=== PATIENT | male | born 1955 | race Two or more races ===

== ENCOUNTER 2019-08-27 20:51 | Emergency (ER) | payer BC, OTHER ==
[~2019-08-27] VITALS: Ht 175.3 cm; Wt 122.5 kg
[~2019-08-27 20:51] MED LIST: ASPIRIN81 MG PO; DIOVAN80 MG PO; LIPITOR80 MG PO; METOPROLOL TART25 MG PO; NIASPAN500 MG PO; PLAVIX75 MG PO
[2019-08-27] MEDS ORDERED: ACETAMINOPHEN 325 MG TAB PO ONE (21:15)
[2019-08-27 22:29] LABS: INFLUENZAE A&B ANTIGEN (RAPID) NEGATIVE (NEGATIVE); STREPTOCOCCUS GRP A ANTIGEN NEGATIVE (NEGATIVE)
--- NOTE | 2019-08-27 22:44 | Diagnostic Imaging Report ---
EXAMINATION: CHEST 2 VIEWS INDICATION: Cough, short of breath COMPARISON: None FINDINGS: TUBES and LINES: Right chest wall cardiac device with leads in the right atrium and right ventricle. LUNGS: Normal lung volumes. Mild prominence of pulmonary interstitial lung markings. Prominence of pulmonary fissures on lateral view. Prominent central pulmonary vasculature. PLEURA: No pleural effusion or pneumothorax. HEART AND MEDIASTINUM: Moderate cardiomegaly. Post surgical changes along the mediastinum. BONES AND SOFT TISSUES: No acute osseous lesion. Soft tissues are unremarkable. Intact sternotomy wires. UPPER ABDOMEN: No free air under the diaphragm. IMPRESSION: Moderate cardiomegaly and pulmonary vascular congestion. Mild pulmonary interstitial edema is possible. Signed by: Jamal Barber DO on 08/27/2019 10:42 PM
[2019-08-27 23:07] VITALS: BP 125/68
== END 2019-08-27 23:23 | disposition home or self-care (01) ==
LOC: ER 20:51
DX: R50.9 Fever, unspecified (principal); R05 Cough; J20.9 Acute bronchitis, unspecified
CPT/HCPCS: 71046; 83518; 87070; 87400; 99283